=== PATIENT | female | born 1995 | race Caucasian/White ===

== ENCOUNTER 2020-10-29 05:58 | Inpatient (IN) | payer BC, MEDICAID ==
[2020-10-25 13:36] VITALS: BMI 32.1
[2020-10-29] MEDS ORDERED: CARBOPROST TROMETHAMINE 250 MCG/ML 1 ML AMP IM PRN (06:12)
[2020-10-29] MEDS ORDERED: OXYTOCIN 10 UNIT/ML 1 ML VIAL IM PRN (06:12)
[2020-10-29] MEDS ORDERED: LIDOCAINE 0.5% (PF) 5 MG/ML (50 ML SDV) SQ PRN (06:12)
[2020-10-29] MEDS ORDERED: METHYLERGONOVINE 0.2 MG/ML 1 ML AMP IM PRN (06:12)
[2020-10-29] MEDS ORDERED: TERBUTALINE 1 MG/ML VIAL SQ PRN (06:12)
[2020-10-29] MEDS ORDERED: OXYTOCIN 30 UNITS/500 ML NS 30 UNIT in SALINE 1 500ML.BAG IV SCH ×2 (06:15→19:18)
[2020-10-29] MEDS: LACTATED RINGERS 1,000 ML IV SCH ×3 (06:20→21:43)
[2020-10-29 06:37] LABS: Basophils % (A) 0 %; Eosinophils # (A) 0.1 k/uL (0-0.7); Eosinophils % (A) 1 %; HCT 37.3 % (34.0-46.0); HGB 12.7 gm/dL (11.4-16.0); Lymphocytes # (A) 2.3 k/uL (1.0-4.8); Lymphocytes % (A) 19 %; MCH 32.6 pg (25.0-35.0); MCHC 34.1 g/dL (31.0-37.0); MCV 95.6 fL (80.0-100.0); Mean Platelet Volume 8.9; Monocytes # (A) 0.5 k/uL (0-1.0); Monocytes % (A) 4 %; Neutrophils # (A) 8.8 k/uL (1.3-7.7); Neutrophils % (A) 74 %; Platelet Count 247 k/uL (150-450); RDW 13.3 % (11.5-15.5)
[2020-10-29] MEDS ORDERED: fentaNYL (PF) 50 MCG/ML 5 ML AMP ONE (16:09)
[2020-10-29] MEDS ORDERED: SODIUM CHLORIDE 0.9% 100 ML BAG ONE (16:09)
[2020-10-29] MEDS ORDERED: ROPIVACAINE 5MG/ML 20ML VIAL ONE (16:09)
[2020-10-29] MEDS ORDERED: CITRIC ACID-SODIUM CITRATE 15 ML CUP PO ONE (18:08)
--- NOTE | 2020-10-29 18:11 | P.HPOB ---
History of Present Illness H&P Date: 10/29/20 Chief Complaint: IUP at 40-0/7 weeks This is a 25-year-old at 40-0/7 weeks that presents to labor and delivery for induction of labor. Estimated due date of 10/29 consistent with last menstrual period, first trimester ultrasound. Patient has been receiving routine care with myself which has been essentially unconjugated. Patient does note good movement, vaginal bleeding or loss of fluid prior to admission. Patient did have a ultrasound done at 35 weeks as she was measuring large for gestational age, estimated weight at that time was 7 lbs. 11 oz. > 99 percentile. On bloodwork this patient is a blood type of A+, rubella status immune, B surface antigen negative, HIV negative, RPR nonreactive, group beta strep cultures negative. Review of Systems Constitutional: Denies chills, Denies fatigue, Denies fever Ears, nose, mouth and throat: Denies headache Cardiovascular: Reports leg edema Respiratory: Denies dyspnea Gastrointestinal: Denies constipation, Denies diarrhea, Denies nausea, Denies vomiting Genitourinary: Reports Past Medical History Past Medical History: No Reported History History of Any Multi-Drug Resistant Organisms: None Reported Additional Past Surgical History / Comment(s): WISDOM TEETH REMOVED, Past Anesthesia/Blood Transfusion Reactions: Motion Sickness, Postoperative Nausea & Vomiting (PONV) Additional Past Anesthesia/Blood Transfusion Reaction / Comment(s): WITH TEETH EXTRACTIONS Past Psychological History: No Psychological Hx Reported Smoking Status: Never smoker Past Alcohol Use History: None Reported Past Drug Use History: None Reported - Past Family History Mother Family Medical History: No Reported History Medications and Allergies Home Medications Medication Instructions Recorded Confirmed Type Krm425/Iron/FA/O3/Dha/Epa/Fish 1 each PO DAILY 10/25/20 10/29/20 History [ Multi-Dha Softgel] Allergies Allergy/AdvReac Type Severity Reaction Status Date / Time No Known Allergies Allergy Verified 10/29/20 06:12 Exam Osteopathic Statement: *. No significant issues noted on an osteopathic structural exam other than those noted in the History and Physical/Consult. Vital Signs Temp Pulse Resp BP Pulse Ox 10/29/20 06:35 97.0 F L 89 16 112/66 98 Intake and Output 10/28/20 10/29/20 10/29/20 22:59 06:59 14:59 Other: Weight 77.111 kg Targeted physical exam is performed in this date and hand drawer in a well-nourished well developed female in no acute distress, breathing is noted to labor, heart has a regular rate and rhythm, abdomen is gravid, heart tones returned be category 1 and she is melony every 1-3 minutes. On cervical exam she is 2/50/-2 station amniotomy is performed and clear fluid was obtained. Results Result Diagrams: 10/29/20 06:20 Abnormal Lab Results - Last 24 Hours (Table) 10/29/20 Range/Units 06:20 WBC 12.0 H (3.8-10.6) k/uL Neutrophils # 8.8 H (1.3-7.7) k/uL Assessment and Plan (1) Term Current Visit: Yes Status: Acute Code(s): Z34.90 - ENCNTR FOR SUPRVSN OF NORMAL , UNSP, UNSP TRIMESTER SNOMED Code(s): 48096795 Plan: 25-year-old at 40-0/7 weeks that presents to labor and delivery for induction of labor. Patient is admitted to labor and delivery and Pitocin induction of labor is begun per hospital protocol. Options for analgesia during labor discussed including Stadol and epidural. She will consider. Discussion regarding suspected LGA are reviewed, all questions are answered and patient states understanding. Prior discussion regarding this issue were discussed in the office and all questions were answered at that time.
[2020-10-29] MEDS ORDERED: OXYTOCIN 30 UNITS/500 ML NS BAG IV ONE (18:30)
[2020-10-29] MEDS ORDERED: KETOROLAC 15 MG/ML 1 ML VIAL ONE (18:30)
[2020-10-29] MEDS ORDERED: ONDANSETRON 4 MG/2 ML VIAL ONE (18:30)
[2020-10-29] MEDS ORDERED: fentaNYL (PF) 50 MCG/ML 2 ML AMP ONE (18:30)
[2020-10-29] MEDS ORDERED: MORPHINE SULFATE (PF) 0.3 MG/0.3 ML SYR ONE (18:30)
--- NOTE | 2020-10-29 19:11 | P.OP ---
Date of Procedure: 10/29/20 Preoperative Diagnosis: IUP at 40 and 0, nonreassuring heart tones, arrest of dilation Postoperative Diagnosis: Same Anesthesia: epidural Surgeon: Micki Sharif Lard Bleacher #1: Nicolas Leon Estimated Blood Loss (ml): 440 IV fluids (ml): 1,000 Urine output (ml): 200 Pathology: other Condition: stable Indications for Procedure: 25-year-old at 40-0/7 weeks that presented to labor and delivery stay for induction of labor. Patient was admitted and Pitocin induction of labor was begun. Patient made slow progress eventually becoming uncomfortable and epidural was placed. Patient was noted to be 4 cm after epidural, significant That was appreciated. heart tones were noted to have late decelerations therefore decision was made to proceed with primary secondary to nonreassuring heart tones. Operative Findings: Normal uterus tubes and ovaries are appreciated, viable male delivered at 1841, weight of 8 lbs. 9 oz., Apgars of 7 and 8 at one and 5 minutes respectively. Infant did necessitate low by oxygen and is being evaluated in the nursery. Description of Procedure: Patient was taken back to the operating suite where epidural anesthesia was found be adequate. She was then prepped and draped in the normal sterile fashion in the dorsal supine position. A Pfannenstiel skin incision was made with the scalpel and carried through the underlying layer of fascia. The fascia was then incised in the midline and extended laterally. The superior aspect of the fascial incision was then grasped michael clamps, elevated and underlying rectus muscles dissected off sharply. Attention was then turned to the inferior aspect of the fascial incision was grasped with Boaz clamps, elevated and underlying rectus muscles dissected off sharply once again. The rectus muscles are in the midline the peritoneum was identified and entered. The bladder blade was inserted and the pelvis. The vesicouterine peritoneum was identified and a bladder flap was created using sharp and blunt dissection. The bladder blade was then reinserted in the pelvis. Hysterotomy incision was made with the scalpel the was encountered in an occiput transverse vertex presentation. The hysterotomy incision is extended bluntly, and the was delivered in the usual fashion. The vocal cord was doubly clamped and cut and the infant was handed off to awaiting RN. A spontaneous cry was noted at . The placenta was then delivered manually and the uterus was cleared of all clots and debris. Uterus then delivered from the abdomen. The uterine incision was then closed with 0 Vicryl in a running locked fashion. A second imbricating suture was performed. Bleeding is noted on the right-hand side of the uterine incision therefore a [id number]-[id number] suture was used to obtain hemostasis. Bleeding is noted in the midportion of the hysterotomy incision therefore a [id number] suture was used to obtain hemostasis. Hemostasis was appreciated and the uterus returned to the abdomen. The gutters were cleared of all clots and debris. The hysterotomy incision was inspected hemostasis was appreciated. The peritoneum was loosely reapproximated. Rectus muscles were inspected and hemostasis was appreciated. The fascia was then closed with 0 Vicryl in a running fashion from one lateral edge the midline and the other lateral edge the midline. The subcutaneous tissue was irrigated found to be hemostatic. The subcutaneous tissue was closed with 3-0 Vicryl in a running fashion. The skin was then closed with 4-0 Vicryl in a subcuticular fashion. Steri-Strips and sterile dressings were applied. All counts were noted be correct 2 at the procedure. Patient and infant tolerated procedure well and are resting comfortably.
[2020-10-29] MEDS ORDERED: ONDANSETRON 4 MG/2 ML VIAL IVP PRN (19:18)
[2020-10-29] MEDS ORDERED: diphenhydrAMINE 50 MG/ML 1 ML VIAL IVP PRN ×2 (19:18)
[2020-10-29] MEDS ORDERED: ZOLPIDEM 5 MG TAB PO PRN (19:18)
[2020-10-29] MEDS ORDERED: diphenhydrAMINE 50 MG CAP PO PRN (19:18)
[2020-10-29] MEDS ORDERED: METOCLOPRAMIDE 5 MG/ML 2 ML VIAL IVP PRN (19:18)
[2020-10-29] MEDS ORDERED: NALOXONE 0.4 MG/ML 1 ML VIAL IV PRN (19:18)
[2020-10-29] MEDS ORDERED: SIMETHICONE 80 MG CHEWABLE PO PRN (19:18)
[2020-10-29] MEDS ORDERED: diphenhydrAMINE 25 MG CAP PO PRN (19:18)
[2020-10-29] MEDS: ACETAMINOPHEN IV (For NPO) 1,000 MG in EMPTY BAG 1 BAG IVPB SCH (21:41)
[2020-10-29] MEDS: ACETAMINOPHEN TAB 500 MG TAB PO SCH (22:29)
[2020-10-29] MEDS: IBUPROFEN IV 800 MG in SODIUM CHLORIDE 0.9% 250 ML IV SCH (22:31)
[2020-10-30] MEDS: SENNOSIDES-DOCUSATE SODIUM 1 EACH TAB PO SCH ×3 (02:30→21:07)
[2020-10-30] MEDS: IBUPROFEN 600 MG TAB PO SCH ×4 (02:30→17:36)
[2020-10-30] MEDS: IBUPROFEN IV 800 MG in SODIUM CHLORIDE 0.9% 250 ML IV SCH (03:50)
[2020-10-30] MEDS: ACETAMINOPHEN TAB 500 MG TAB PO SCH ×2 (04:32→21:08)
--- NOTE | 2020-10-30 07:07 | P.PN ---
Progress Note - Text 10/30/20 642am 85-year-old female status post . Patient received Duramorph why the epidural catheter postoperatively. Patient seen and evaluated this morning for postop pain control, patient has a VAS of 0, no complains of nausea vomiting or pruritus
[2020-10-30 07:53] LABS: Basophils % (A) 0 %; Eosinophils # (A) 0.1 k/uL (0-0.7); Eosinophils % (A) 1 %; HCT 32.2 % (34.0-46.0); Lymphocytes % (A) 14 %; MCH 33.2 pg (25.0-35.0); MCHC 34.3 g/dL (31.0-37.0); MCV 96.8 fL (80.0-100.0); Mean Platelet Volume 10.4; Monocytes # (A) 0.5 k/uL (0-1.0); Monocytes % (A) 4 %; Neutrophils # (A) 10.8 k/uL (1.3-7.7); Neutrophils % (A) 80 %; Platelet Count 205 k/uL (150-450); RBC 3.32 m/uL (3.80-5.40); RDW 13.5 % (11.5-15.5); WBC 13.6 k/uL (3.8-10.6)
[2020-10-30] MEDS: ACETAMINOPHEN IV (For NPO) 1,000 MG in EMPTY BAG 1 BAG IVPB SCH (07:57)
[2020-10-30] MEDS: PRENATAL VIT-IRON-FOLIC ACID 1 EACH CAP PO SCH (07:58)
--- NOTE | 2020-10-30 08:46 | P.PNOBGPC ---
Subjective - Subjective Principal diagnosis: POD 1 LTCS Interval history: Patient is doing well postoperatively. She is ambulating without difficulty we are awaiting a spontaneous void. Pain is well-controlled. She is pumping. She states her lochia is minimal. Infant remains in the nursery on oxygen. Patient reports: Reports appetite normal, Reports pain well controlled, Reports ambulating normally : doing well (In the nursery on oxygen.) Objective - Vital Signs Latest vital signs: Vital Signs Temp Pulse Resp BP Pulse Ox 10/30/20 08:00 98.1 F 72 15 95/61 97 10/30/20 04:00 99.0 F 73 16 109/55 10/30/20 00:00 97.8 F 72 16 105/65 100 10/29/20 21:15 73 16 117/71 98 10/29/20 20:45 90 16 115/59 100 10/29/20 20:15 90 16 109/60 100 10/29/20 20:00 90 16 122/60 100 10/29/20 19:45 85 16 117/58 100 10/29/20 19:30 84 16 154/64 100 10/29/20 19:15 96.8 F L 77 16 113/64 98 Intake and Output 10/29/20 10/30/20 10/30/20 22:59 06:59 14:59 Output Total 400 1400 Balance -400 -1400 Output: Urine 400 1400 Other: Voiding Method Indwelling Catheter Indwelling Catheter - Exam Extremities: Present: normal, edema Abdomen: Present: normal appearance Incision: Present: normal, intact Uterus: Present: normal - Labs Labs: Abnormal Lab Results - Last 24 Hours (Table) 10/30/20 Range/Units 07:36 WBC 13.6 H (3.8-10.6) k/uL RBC 3.32 L (3.80-5.40) m/uL Hgb 11.0 L (11.4-16.0) gm/dL Hct 32.2 L (34.0-46.0) % Neutrophils # 10.8 H (1.3-7.7) k/uL Assessment and Plan (1) Term Current Visit: Yes Status: Acute Code(s): Z34.90 - ENCNTR FOR SUPRVSN OF NORMAL , UNSP, UNSP TRIMESTER SNOMED Code(s): 35457290 (2) Non-reassuring electronic monitoring tracing Current Visit: Yes Status: Acute Code(s): O36.8390 - MATERN CARE FOR ABNLT FETL HRT RATE OR RHYM, UNSP TRI, UNSP SNOMED Code(s): 237547468 (3) Arrest of dilation, delivered, current hospitalization Current Visit: Yes Status: Acute Code(s): O62.1 - SECONDARY UTERINE INERTIA SNOMED Code(s): 76943517 Plan: 25-year-old G1 now P1 status post primary for nonreassuring heart tones and arrest of dilation. Patient is doing well postoperatively. Awaiting spontaneous void. Plan to continue routine postoperative care.
[2020-10-31] MEDS: IBUPROFEN 600 MG TAB PO SCH ×4 (00:30→18:27)
[2020-10-31 01:58] VITALS: RESP 16
[2020-10-31] MEDS: ACETAMINOPHEN TAB 500 MG TAB PO SCH ×5 (03:46→22:05)
[2020-10-31] MEDS: LACTATED RINGERS 1,000 ML IV SCH (03:57)
[2020-10-31] MEDS: IBUPROFEN IV 800 MG in SODIUM CHLORIDE 0.9% 250 ML IV SCH (03:57)
--- NOTE | 2020-10-31 08:38 | P.PNOBGPC ---
Subjective - Subjective Principal diagnosis: POD 2 LTCS NRFHTs Interval history: Patient is doing well. Ambulating and voiding without difficulty. Tolerating a regular diet without nausea or vomiting. Pain is well-controlled with oral Tylenol/Motrin. She is pumping as infant remains in the nursery on oxygen therapy. Lochia is minimal. Patient reports: Reports appetite normal, Reports voiding normally, Reports pain well controlled, Reports ambulating normally [place]: doing well (On oxygen in the nursery) Objective - Vital Signs Latest vital signs: Vital Signs Temp Pulse Resp BP Pulse Ox 10/31/20 00:30 97.8 F 71 16 103/63 10/31/20 00:00 71 16 10/30/20 16:00 98 F 84 15 134/72 10/30/20 12:00 98.1 F 77 15 116/78 98 Intake and Output 10/30/20 10/31/20 10/31/20 22:59 06:59 14:59 Other: # Voids 1 - Exam Extremities: Present: normal, edema Abdomen: Present: normal appearance, soft Incision: Present: normal, dry, intact Uterus: Present: normal, firm Assessment and Plan (1) Term Current Visit: Yes Status: Acute Code(s): Z34.90 - ENCNTR FOR SUPRVSN OF NORMAL , UNSP, UNSP TRIMESTER SNOMED Code(s): 14920267 (2) Non-reassuring electronic monitoring tracing Current Visit: Yes Status: Acute Code(s): O36.8390 - MATERN CARE FOR ABNLT FETL HRT RATE OR RHYM, UNSP TRI, UNSP SNOMED Code(s): 357363618 (3) Arrest of dilation, delivered, current hospitalization Current Visit: Yes Status: Acute Code(s): O62.1 - SECONDARY UTERINE INERTIA SNOMED Code(s): 41138361 (4) S/P section Current Visit: Yes Status: Acute Code(s): Z98.891 - HISTORY OF UTERINE SCAR FROM PREVIOUS SURGERY SNOMED Code(s): 738571424 Plan: Patient continues to do well postoperatively. is improving and nursery on oxygen therapy. We'll continue routine postoperative care for mom.
[2020-10-31] MEDS: SENNOSIDES-DOCUSATE SODIUM 1 EACH TAB PO SCH ×2 (08:50→20:14)
[2020-10-31] MEDS: PRENATAL VIT-IRON-FOLIC ACID 1 EACH CAP PO SCH (16:35)
[2020-11-01] MEDS: IBUPROFEN 600 MG TAB PO SCH ×4 (00:51→19:58)
[2020-11-01] MEDS: ACETAMINOPHEN TAB 500 MG TAB PO SCH ×4 (03:41→23:06)
--- NOTE | 2020-11-01 08:42 | P.PNOBGPC ---
Subjective - Subjective Principal diagnosis: Postoperative day 3, primary Interval history: Patient is doing well. Ambulating and voiding without difficulty. Tolerating a regular diet without nausea or vomiting. She denies concerns this morning. Patient reports: Reports appetite normal, Reports voiding normally, Reports pain well controlled, Reports ambulating normally : doing well (Off oxygen, on IV antibiotics) Objective - Vital Signs Latest vital signs: Vital Signs Temp Pulse Resp BP Pulse Ox 11/01/20 03:52 98.3 F 75 16 122/73 11/01/20 00:37 98.3 F 69 16 110/64 10/31/20 20:00 97.8 F 75 16 111/69 98 10/31/20 15:47 98.2 F 86 16 124/75 10/31/20 15:34 94 16 Intake and Output 10/31/20 11/01/20 11/01/20 22:59 06:59 14:59 Intake Total 400 Balance 400 Intake: Oral 400 Other: Voiding Method Toilet # Voids 2 1 - Exam Extremities: Present: normal, edema Abdomen: Present: normal appearance, soft Incision: Present: normal, dry, intact Uterus: Present: normal, firm Assessment and Plan (1) Term Current Visit: Yes Status: Acute Code(s): Z34.90 - ENCNTR FOR SUPRVSN OF NORMAL , UNSP, UNSP TRIMESTER SNOMED Code(s): 23656478 (2) Non-reassuring electronic monitoring tracing Current Visit: Yes Status: Acute Code(s): O36.8390 - MATERN CARE FOR ABNLT FETL HRT RATE OR RHYM, UNSP TRI, UNSP SNOMED Code(s): 730855520 (3) Arrest of dilation, delivered, current hospitalization Current Visit: Yes Status: Acute Code(s): O62.1 - SECONDARY UTERINE INERTIA SNOMED Code(s): 78141130 (4) S/P section Current Visit: Yes Status: Acute Code(s): Z98.891 - HISTORY OF UTERINE SCAR FROM PREVIOUS SURGERY SNOMED Code(s): 451995624 Plan: 25-year-old G1 now P1 status post primary for nonreassuring heart tones. Patient is doing well. remains in the nursery for monitoring, he is off oxygen but remains on IV antibiotics. We will plan continued postoperative care for this patient, and anticipate discharge home tomorrow.
[2020-11-01] MEDS: SENNOSIDES-DOCUSATE SODIUM 1 EACH TAB PO SCH ×2 (10:08→20:49)
[2020-11-01] MEDS: PRENATAL VIT-IRON-FOLIC ACID 1 EACH CAP PO SCH (10:12)
[2020-11-02] MEDS: IBUPROFEN 600 MG TAB PO SCH ×4 (01:58→16:02)
[2020-11-02] MEDS: ACETAMINOPHEN TAB 500 MG TAB PO SCH ×3 (05:19→18:12)
[2020-11-02] MEDS: SENNOSIDES-DOCUSATE SODIUM 1 EACH TAB PO SCH (08:53)
[2020-11-02 09:15] VITALS: TEMP 98.1
--- NOTE | 2020-11-02 11:01 | P.DS ---
Providers Date of admission: 10/29/20 05:58 Expected date of discharge: 11/02/20 Attending physician: Micki Sharif Primary care physician: Ingris Haney - Discharge Diagnosis(es) (1) Term Current Visit: Yes Status: Acute (2) Non-reassuring electronic monitoring tracing Current Visit: Yes Status: Acute (3) Arrest of dilation, delivered, current hospitalization Current Visit: Yes Status: Acute (4) S/P section Current Visit: Yes Status: Acute Hospital Course: This is a 25-year-old that presented to labor and delivery at 40-0/7 weeks for induction of labor. Patient was admitted and Pitocin induction of labor was begun. Patient had been receiving routine care which is been essentially uncomplicated. Patient made slow progress eventually becoming uncomfortable and epidural was placed without difficulty. Patient was noted to be 4 cm after epidural. heart tones were noted to begin to have late decelerations that were consistent in nature, cervical swelling was appreciated. Decision was made for primary secondary to nonreassuring heart tones, remote from delivery. Patient was taken back to the operating suite where was performed without difficulty. Patient delivered a viable male at 1841, weight of 8 lbs. 9 oz. and Apgars of 7 and 8 at one and 5 minutes respectively. was subsequently taken back to the nursery for oxygen treatment. Patient's postoperative course has been uneventful. On this postoperative day #4 she is ambulating and voiding without difficulty. She states her pain is well-controlled. Her lochia is minimal. She denies concerns. She is pumping. She does request a breast pump prescription prior to discharge. is in the nursery on IV antibiotic treatment. Patient Condition at Discharge: Good Plan - Discharge Summary New Discharge Prescriptions: No Action Nvd883/Iron/FA/O3/Dha/Epa/Fish [ Multi-Dha Softgel] 1 each PO DAILY Discharge Medication List Vme289/Iron/FA/O3/Dha/Epa/Fish [ Multi-Dha Softgel] 1 each PO DAILY 10/25/20 [History] Follow up Appointment(s)/Referral(s): Micki Sharif DO [Doctor of Osteopathic Medicine] - 2 Weeks Patient Instructions/Handouts: (DC), (GEN) Discharge Disposition: HOME SELF-CARE
[2020-11-02] MEDS: PRENATAL VIT-IRON-FOLIC ACID 1 EACH CAP PO SCH (11:45)
[2020-11-02 16:09] VITALS: BP 135/69; PULSE 89
== END 2020-11-02 18:30 | disposition home or self-care (01) | DRG 788 ==
LOC: 4FBP 05:58
PROVIDERS: ADMIT Obstetrics & Gynecology Obstetrics; ATTEND Obstetrics & Gynecology Obstetrics
PROC: 00HU33Z Insertion of Infusion Device into Spinal Canal, Percutaneous Approach (ICD-10-PCS; principal; 2020-10-29 06:00)
PROC: 10D00Z1 Extraction of Products of Conception, Low, Open Approach (ICD-10-PCS; principal; 2020-10-29 06:00)
PROC: 3E033VJ Introduction of Other Hormone into Peripheral Vein, Percutaneous Approach (ICD-10-PCS; principal; 2020-10-29 06:00)
PROC: 3E0R3NZ Introduction of Analgesics, Hypnotics, Sedatives into Spinal Canal, Percutaneous Approach (ICD-10-PCS; principal; 2020-10-29 06:00)
PROC: 10907ZC Drainage of Amniotic Fluid, Therapeutic from Products of Conception, Via Natural or Artificial Opening (ICD-10-PCS; principal; 2020-10-29 06:00)
DX: O62.1 Secondary uterine inertia (principal); O76 Abnormality in fetal heart rate and rhythm complicating labor and delivery; O62.0 Primary inadequate contractions; Z3A.40 40 weeks gestation of pregnancy; Z37.0 Single live birth
CPT/HCPCS: 85025; 86850; 86900; 86901; 88307

== ENCOUNTER → 2023-04-07 | Outpatient (CLI) | payer MEDICAID ==
[2023-04-07 16:55] LABS: HCT 33.8 % (37.2-46.3); HGB 11.6 g/dL (12.0-15.0); MCH 30.5 pg (27.0-32.0); MCHC 34.3 g/dL (32.0-37.0); MCV 88.9 FL (80.0-97.0); Mean Platelet Volume 10.4 FL (9.5-12.2); NRBC Per 100 WBC 0 X 10*3/uL (0.00-0.01); Platelet Count 295 X 10*3/uL (140-440); RDW 12.9 % (11.5-14.5); WBC 10.15 X 10*3/uL (4.50-10.00)
[2023-04-07 20:00] LABS: Hepatitis B Surface Antigen Nonreactive
[2023-04-07 21:55] LABS: HIV 2 AB Non-Reactive (Non-Reactive); HIV AB P24 Non-Reactive (Non-Reactive); HIV P24 AG Non-Reactive (Non-Reactive)
== END | disposition home or self-care (01) ==
LOC: LABWHC1 10:54
PROVIDERS: ATTEND Obstetrics & Gynecology Obstetrics
DX: Z34.81 Encounter for supervision of other normal pregnancy, first trimester (principal)
CPT/HCPCS: 36415; 85027; 86762; 86780; 86850; 86900; 86901; 87340; 87390

== ENCOUNTER → 2023-07-01 | Outpatient (CLI) | payer MEDICAID ==
[2023-07-01 11:23] LABS: HGB 11.2 g/dL (12.0-15.0); MCH 31.8 pg (27.0-32.0); MCHC 33.9 g/dL (32.0-37.0); MCV 93.8 FL (80.0-97.0); Mean Platelet Volume 10.3 FL (9.5-12.2); NRBC Per 100 WBC 0 X 10*3/uL (0.00-0.01); Platelet Count 282 X 10*3/uL (140-440); RBC 3.52 X 10*6/uL (4.10-5.20); RDW 12.6 % (11.5-14.5); WBC 12.86 X 10*3/uL (4.50-10.00)
== END | disposition home or self-care (01) ==
LOC: LABWHC1 07:04
PROVIDERS: ATTEND Obstetrics & Gynecology Obstetrics
DX: Z36.9 Encounter for antenatal screening, unspecified (principal)
CPT/HCPCS: 36415; 82950; 85027

== ENCOUNTER 2023-09-23 08:38 | Inpatient (IN) | payer MEDICAID ==
[2023-09-23] MEDS ORDERED: OXYTOCIN 10 UNIT/ML 1 ML VIAL IM PRN (09:56)
[2023-09-23] MEDS ORDERED: TRANEXAMIC 1,000 MG/100ML-NACL 1,000 MG in EMPTY BAG 1 BAG IV PRN (09:56)
[2023-09-23] MEDS ORDERED: miSOPROStoL 200 MCG TAB PO PRN (09:56)
[2023-09-23] MEDS ORDERED: METHYLERGONOVINE 0.2 MG/ML 1 ML AMP IM PRN (09:56)
[2023-09-23] MEDS ORDERED: CARBOPROST TROMETHAMINE 250 MCG/ML 1 ML AMP IM PRN (09:56)
[2023-09-23] MEDS ORDERED: OXYTOCIN 30 UNITS/500 ML NS 30 UNIT in SALINE 1 500ML.BAG IV SCH (10:00)
[2023-09-23] MEDS: CITRIC ACID-SODIUM CITRATE 15 ML CUP PO ONE (10:19)
[2023-09-23] MEDS: LACTATED RINGERS 1,000 ML IV SCH ×2 (10:19→14:15)
[2023-09-23 11:11] LABS: Basophils % (A) 0 %; Eosinophils # (A) 0.1 k/uL (0-0.7); Eosinophils % (A) 1 %; HCT 35.8 % (34.0-46.0); HGB 11.9 gm/dL (11.4-16.0); Lymphocytes # (A) 1.6 k/uL (1.0-4.8); Lymphocytes % (A) 14 %; MCH 31.4 pg (25.0-35.0); MCHC 33.4 g/dL (31.0-37.0); Mean Platelet Volume 9.2; Monocytes # (A) 0.5 k/uL (0-1.0); Monocytes % (A) 4 %; Neutrophils # (A) 9.1 k/uL (1.3-7.7); Neutrophils % (A) 80 %; Platelet Count 224 k/uL (150-450); RBC 3.81 m/uL (3.80-5.40); RDW 13.4 % (11.5-15.5); WBC 11.4 k/uL (3.8-10.6)
[2023-09-23] MEDS ORDERED: MORPHINE SULFATE (PF) 0.3 MG/0.3 ML SYR ONE (12:12)
[2023-09-23] MEDS ORDERED: ONDANSETRON 4 MG/2 ML VIAL ONE (12:12)
[2023-09-23] MEDS ORDERED: OXYTOCIN 30 UNITS/500 ML NS BAG IV ONE (12:12)
[2023-09-23] MEDS ORDERED: diphenhydrAMINE 50 MG/ML 1 ML VIAL IVP PRN ×2 (13:02)
[2023-09-23] MEDS ORDERED: ZOLPIDEM 5 MG TAB PO PRN (13:02)
[2023-09-23] MEDS ORDERED: ONDANSETRON 4 MG/2 ML VIAL IVP PRN (13:02)
[2023-09-23] MEDS ORDERED: SIMETHICONE 80 MG CHEWABLE PO PRN (13:02)
[2023-09-23] MEDS ORDERED: METOCLOPRAMIDE 5 MG/ML 2 ML VIAL IVP PRN (13:02)
[2023-09-23] MEDS ORDERED: NALOXONE 0.4 MG/ML 1 ML VIAL IV PRN (13:02)
[2023-09-23] MEDS ORDERED: diphenhydrAMINE 50 MG CAP PO PRN (13:02)
--- NOTE | 2023-09-23 13:07 | P.OP ---
Date of Procedure: 09/23/23 Preoperative Diagnosis: IUP at 39 and 0, history of x 1, desires repeat Postoperative Diagnosis: Same Procedure(s) Performed: Repeat section Anesthesia: spinal Surgeon: Micki Sharif Reinforcing Steel Erector #1: Lewis Ng Estimated Blood Loss (ml): 333 IV fluids (ml): 1,000 Urine output (ml): 100 (Clear yellow) Pathology: other Condition: stable Disposition: observation Indications for Procedure: 28-year-old -0-1-1 at 39 and 0 presents for scheduled repeat section. Patient has a history of a primary and requested repeat. Operative Findings: Viable female infant delivered at 1234, weight of 7 pounds 2 ounces, Apgars of 9 and 9 at 1 and 5 minutes respectively. Normal uterus tubes and ovaries were appreciated. Description of Procedure: The patient was prepped and draped in the usual fashion after spinal anesthesia was administered by the anesthesia department. A Pfannenstiel incision was made and extended of the abdominal cavity without difficulty. The bladder flexion was noted to be far away from the prior hysterotomy incision. A 2 cm incision was made in the transverse plane of the lower uterine segment to enter the uterus at which time clear fluid was noted. The incision was extended in both directions bluntly. The head was encountered within the field and delivered up and through the incision where the nose and mouth were thoroughly suctioned. Remainder of the was delivered onto the surgical field where the cord was doubly clamped, cut, and the infant was passed for resuscitative measures with weight and Apgars as noted above. The placenta was delivered manually, intact, and was grossly normal with a grossly normal three-vessel cord. The uterus was exteriorized and the interior cavity of the uterus swept of any remaining placental and membranous fragments with a laparotomy sponge. The margins of the incision were grasped with Allis clamps and the incision closed in 2 layers. First layer was a running locking layer of 0 Vicryl from margin to margin followed by a second layer of imbricating 0 Vicryl from margin to margin. Any small points of bleeding were then made hemostatic with the Bovie. Once hemostasis was achieved, the posterior cul-de-sac was suctioned with a guard and the uterine and ovarian findings are as noted above. The uterus was replaced within the abdominal cavity and the gutters swept of any remaining blood fluid or clot. The incision was again reexamined and hemostasis was noted to be excellent. Any small point of bleeding were made hemostatic with the Bovie. Once hemostasis was achieved the parietal peritoneum was loosely reapproximated. The layer of muscles were examined and made hemostatic with the Bovie. Attention was then turned to the fascia which was closed with 2 running stitches of 0 Vicryl proceeding from the lateral margins to the midpoint. The subcutaneous tissues were irrigated, made hemostatic with the Bovie, and reapproximated with a running stitch of 30 Vicryl. The skin was reapproximated with 4-0 Vicryl. Estimated blood loss for the case was approximately 333 mL. All sponge instrument and needle counts are correct. There were no complications. The patient tolerated the procedure well and proceeded to the recovery room in stable condition. Both mother and are resting comfortably in recovery.
--- NOTE | 2023-09-23 13:08 | P.HPOB ---
History of Present Illness H&P Date: 09/23/23 Chief Complaint: IUP @ 39 weeks, h/o section desires RCS 28 yo at 39 weeks that presents for repeat section. She has a h/o section x 1 and desires repeat. she has been receiving routine care with myself. she does note good FM, no ctx ON bloodwork this patient has a known blood type of A+, rubella status immune, hepatitis B surface engine negative, HIV negative, RPR is nonreactive, grew beta strep culture is negative. Review of Systems Constitutional: Denies chills, Denies fatigue, Denies fever Ears, nose, mouth and throat: Denies headache Cardiovascular: Reports leg edema Respiratory: Denies dyspnea Gastrointestinal: Denies nausea, Denies vomiting Genitourinary: Reports Past Medical History Past Medical History: No Reported History History of Any Multi-Drug Resistant Organisms: None Reported Past Surgical History: Section Additional Past Surgical History / Comment(s): WISDOM TEETH REMOVED, Past Anesthesia/Blood Transfusion Reactions: Motion Sickness, Postoperative Nausea & Vomiting (PONV) Additional Past Anesthesia/Blood Transfusion Reaction / Comment(s): WITH TEETH EXTRACTIONS Past Psychological History: No Psychological Hx Reported Smoking Status: Never smoker Past Alcohol Use History: None Reported Past Drug Use History: None Reported - Past Family History Mother Family Medical History: No Reported History Medications and Allergies Home Medications Medication Instructions Recorded Confirmed Type Szq359/Iron/FA/O3/Dha/Epa/Fish 1 each PO DAILY 10/25/20 09/22/23 History [ Multi-Dha Softgel] Aspirin [Adult Low Dose Aspirin EC] 81 mg PO DAILY 09/22/23 09/22/23 History Allergies Allergy/AdvReac Type Severity Reaction Status Date / Time No Known Allergies Allergy Verified 09/22/23 09:20 Exam Osteopathic Statement: *. No significant issues noted on an osteopathic structural exam other than those noted in the History and Physical/Consult. Vital Signs Temp Pulse Resp BP Pulse Ox 09/23/23 10:34 97.6 F 90 18 119/59 98 Intake and Output 09/22/23 09/23/23 09/23/23 22:59 06:59 14:59 Other: Weight 84.822 kg Targeted physical exam is performed this date General is well-nourished well- developed female in no acute distress, breathing is nonlabored, heart has regular rate and rhythm, abdomen is gravid, cervical exam is deferred, heart tones are noted to be category 1 and she is not melony. Results Result Diagrams: 09/23/23 10:15 Abnormal Lab Results - Last 24 Hours (Table) 09/23/23 Range/Units 10:15 WBC 11.4 H (3.8-10.6) k/uL Neutrophils # 9.1 H (1.3-7.7) k/uL Assessment and Plan (1) H/O section Current Visit: Yes Status: Acute Code(s): Z98.891 - HISTORY OF UTERINE SCAR FROM PREVIOUS SURGERY SNOMED Code(s): 239664450 (2) Term Current Visit: No Status: Acute Code(s): Z34.90 - ENCNTR FOR SUPRVSN OF NORMAL , UNSP, UNSP TRIMESTER SNOMED Code(s): 53748200 Plan: 28 yo that presents for scheduled repeat section.
[2023-09-23] MEDS: ACETAMINOPHEN IV (For NPO) 1,000 MG in EMPTY BAG 1 BAG IVPB SCH (13:30)
[2023-09-23] MEDS: diphenhydrAMINE 25 MG CAP PO PRN (13:31)
[2023-09-23] MEDS: ACETAMINOPHEN TAB 500 MG TAB PO SCH (17:42)
[2023-09-23] MEDS: IBUPROFEN IV 800 MG in SODIUM CHLORIDE 0.9% 250 ML IV SCH (18:37)
[2023-09-23] MEDS: SENNOSIDES-DOCUSATE SODIUM 1 EACH TAB PO SCH (21:20)
[2023-09-23] MEDS: IBUPROFEN 600 MG TAB PO SCH (21:22)
[2023-09-24 07:01] LABS: Basophils % (A) 0 %; Eosinophils # (A) 0.1 k/uL (0-0.7); Eosinophils % (A) 1 %; HCT 32.5 % (34.0-46.0); HGB 11.2 gm/dL (11.4-16.0); Lymphocytes # (A) 1.5 k/uL (1.0-4.8); Lymphocytes % (A) 13 %; MCH 32.6 pg (25.0-35.0); MCHC 34.4 g/dL (31.0-37.0); MCV 94.7 fL (80.0-100.0); Mean Platelet Volume 9.2; Monocytes # (A) 0.6 k/uL (0-1.0); Monocytes % (A) 5 %; Neutrophils # (A) 9.4 k/uL (1.3-7.7); Neutrophils % (A) 80 %; Platelet Count 197 k/uL (150-450); RBC 3.43 m/uL (3.80-5.40); RDW 13.5 % (11.5-15.5); WBC 11.8 k/uL (3.8-10.6)
--- NOTE | 2023-09-24 08:34 | P.PNOBGPC ---
Subjective - Subjective Principal diagnosis: Postop day 1, repeat section Interval history: Patient is doing well this morning. She is ambulating and voiding without difficulty. Her lochia is minimal to moderate. Pain is well-controlled. She notes positive flatus. No nausea and vomiting tolerating a regular diet. Patient reports: Reports appetite normal, Reports voiding normally, Reports pain well controlled, Reports ambulating normally [place]: doing well Objective - Vital Signs Latest vital signs: Vital Signs Temp Pulse Resp BP Pulse Ox 09/24/23 08:00 97.6 F 83 16 104/70 97 09/24/23 04:00 98.5 F 73 18 114/55 09/24/23 00:00 98.2 F 78 18 120/65 09/23/23 20:00 98.6 F 80 18 99/61 09/23/23 15:10 97.9 F 67 18 110/54 97 09/23/23 14:40 97.5 F L 74 18 105/58 97 09/23/23 14:25 71 18 105/60 97 09/23/23 14:10 65 102/55 100 09/23/23 13:55 96.6 F L 72 18 99/52 98 09/23/23 13:40 77 18 99/53 99 09/23/23 13:25 97.2 F L 73 18 96/53 99 09/23/23 13:10 97.9 F 79 18 93/50 99 09/23/23 10:34 97.6 F 90 18 119/59 98 Intake and Output 09/23/23 09/24/23 09/24/23 22:59 06:59 14:59 Output Total 1050 400 Balance -1050 -400 Output: Urine 900 400 Output, Quantitative 150 Blood Loss Other: # Voids 1 - Exam Extremities: Present: normal, edema Abdomen: Present: normal appearance, soft Incision: Present: normal, dry, intact Uterus: Present: normal, firm - Labs Labs: Abnormal Lab Results - Last 24 Hours (Table) 09/23/23 09/24/23 Range/Units 10:15 06:16 WBC 11.4 H 11.8 H (3.8-10.6) k/uL RBC 3.43 L (3.80-5.40) m/uL Hgb 11.2 L (11.4-16.0) gm/dL Hct 32.5 L (34.0-46.0) % Neutrophils # 9.1 H 9.4 H (1.3-7.7) k/uL Assessment and Plan (1) H/O section Current Visit: Yes Status: Acute Code(s): Z98.891 - HISTORY OF UTERINE SCAR FROM PREVIOUS SURGERY SNOMED Code(s): 717620098 (2) Term Current Visit: No Status: Acute Code(s): Z34.90 - ENCNTR FOR SUPRVSN OF NORMAL , UNSP, UNSP TRIMESTER SNOMED Code(s): 83675478 (3) S/P section Current Visit: No Status: Acute Code(s): Z98.891 - HISTORY OF UTERINE SCAR FROM PREVIOUS SURGERY SNOMED Code(s): 752737746 Plan: Patient is doing well postoperatively. Will encourage increased ambulation. Discontinue bandage at 24 hours. Continue routine postoperative care
[2023-09-24] MEDS: PRENATAL VIT-IRON-FOLIC ACID 1 EACH TABLET PO SCH (10:34)
--- NOTE | 2023-09-25 06:28 | P.PN ---
Progress Note - Text 09/24/23 [id number] 48-year-old female status post with spinal Duramorph. Patient seen and evaluated for postop pain control, she has a VAS of 3 with no complaints of nausea vomiting or pruritus.
[2023-09-25 08:56] VITALS: BP 112/53; PULSE 64; RESP 16; TEMP 97.6
--- NOTE | 2023-09-25 09:07 | P.DS ---
Providers Date of admission: 09/23/23 09:56 Expected date of discharge: 09/25/23 Attending physician: Micki Sharif Primary care physician: Stated None - Discharge Diagnosis(es) (1) H/O section Current Visit: Yes Status: Acute (2) Term Current Visit: No Status: Acute (3) S/P section Current Visit: No Status: Acute Hospital Course: This is a 28-year-old 3 now para 2-0-1-2 that presented to labor and delivery on 09/22 for scheduled repeat section. Patient had been receiving routine care with myself which have been essentially uncomplicated. Patient was admitted and taken back to the operating suite where repeat section was performed without complication. For full details on the please see the dictated operative report. Patient delivered a viable female infant at 1234, weight of 7 pounds 2 ounces, Apgars of 9 and 9 at 1 and 5 minutes respectively. Patient's course has been uneventful. On this post operative day #2 she is ambulating and voiding without difficulty. She is tolerating a regular diet without nausea or vomiting. She states her pain is controlled with oral pain medication. Her lochia is minimal. She is breast-feeding without difficulty. She does desire home later today. Patient Condition at Discharge: Good Plan - Discharge Summary Discharge Rx Participant: No New Discharge Prescriptions: No Action Ouy166/Iron/FA/O3/Dha/Epa/Fish [ Multi-Dha Softgel] 1 each PO DAILY Aspirin [Adult Low Dose Aspirin EC] 81 mg PO DAILY Discharge Medication List [id number]/Iron/FA/O3/Dha/Epa/Fish [ Multi-Dha Softgel] 1 each PO DAILY 10/25/20 [History] Aspirin [Adult Low Dose Aspirin EC] 81 mg PO DAILY 09/22/23 [History] Follow up Appointment(s)/Referral(s): Micki Sharif DO [Doctor of Osteopathic Medicine] - 10/07/23 8:15 am (Post Appointment 11-03-2023 at 11:30am) Patient Instructions/Handouts: (DC), (GEN) Activity/Diet/Wound Care/Special Instructions: No intercourse, tampons or tub baths. No heavy lifting greater than a gallon of milk. No driving for two weeks. Call with any fever, shakes or chills, with any pain not alleviated by over the counter meds, or with any quesions or concerns. [id number] ibuprofen 600 mg or 3 tablets every 6 hours as needed for pain. Discharge Disposition: HOME SELF-CARE
== END 2023-09-25 13:00 | disposition home or self-care (01) | DRG 788 ==
LOC: 4FBP 09:56
PROVIDERS: ADMIT Obstetrics & Gynecology Obstetrics; ATTEND Obstetrics & Gynecology Obstetrics
PROC: 10D00Z1 Extraction of Products of Conception, Low, Open Approach (ICD-10-PCS; principal; 2023-09-23 12:00)
DX: O34.211 Maternal care for low transverse scar from previous cesarean delivery (principal); Z37.0 Single live birth; Z3A.39 39 weeks gestation of pregnancy; Z79.82 Long term (current) use of aspirin
CPT/HCPCS: 85025; 86850; 86900; 86901